=== PATIENT | male | born 1960 | race Caucasian/White ===

== ENCOUNTER 2018-06-23 18:03 | Inpatient (IN) | payer OTHER ==
[2018-06-23 19:46] VITALS: BMI 24.2
--- NOTE | 2018-06-23 23:34 | HP ---
"CIWA Score Nausea/Vomitin-Mild Nausea/No Vomiting Muscle Tremors: 4-Moderate,w/Arms Extend Anxiety: 1-Mildly Anxious Agitation: 4-Moderately Restless Paroxysmal Sweats: 3 (Increased facial moisture w/o beads) Orientation: 1-Uncertain about Date Tacttile Disturbances: 0-None Auditory Disturbances: 0-None Visual Disturbances: 0-None Headache: 4-Moderately Severe CIWA-Ar Total Score: 18 - Admission Criteria OASAS Guidelines: Admission for Medically Managed Detox: Requires at least one of the followin. CIWA greater than 12 2. Seizures within the past 24 hours 3. Delirium tremens within the past 24 hours 4. Hallucinations within the past 24 hours 5. Acute intervention needed for co occurring medical disorder 6. Acute intervention needed for co occurring psychiatric disorder 7. Severe withdrawal that cannot be handled at a lower level of care (continued vomiting, continued diarrhea, abnormal vital signs) requiring intravenous medication and/or fluids 8. Patient presents the following: CIWA greater than 12 Admission Criteria Met: Admission criteria met Admission ROS [facility] Chief Complaint: Having alcohol withdrawal. Allergies/Adverse Reactions: Allergies Allergy/AdvReac Type Severity Reaction Status Date / Time peach Allergy Severe Hives Verified 06/23/18 21:09 No Known Drug Allergies Allergy Verified 06/23/18 21:09 NKA Allergy Uncoded 06/23/18 21:09 History of Present Illness: I'm here to detox from alcohol. Marijuana use since age 16. Nicotine use since age 20. Declines nicotine patch and gum. Alcohol use since age 20. Cocaine use since age 31. Heroin use since age 21. Currently on [facility] -OTP ([phone]) Current Methadone dose is 80 mg. States last medicated this am. Denies seizures, blackouts, overdoses. Hx: DM but states stopped meds on own. Will do BGM x 2 days and provider will evaluate on-going necessity. Hx: asthma - denies recent exacerbation. Hx: Chronic LBP. Hx: Depression, insomnia, and anxiety. Denies thoughts of harming self or others. Search Terms: Laquitajuvencio Aguilerava, 1960 Search Date: 06/23/2018 11:31:04 PM The Drug Utilization Report below displays all of the controlled substance prescriptions, if any, that your patient has filled in the last twelve months. The information displayed on this report is compiled from pharmacy submissions to the Department, and accurately reflects the information as submitted by the pharmacies. This report was requested by: Marizol Vinson | Reference #: [id number] Exam Limitations: No Limitations - Ebola screening Have you traveled outside of the country in the last 21 days: No Have you had contact with anyone from an Ebola affected area: No Have you been sick,other than usual withdrawal symptoms: No Do you have a fever: No - Review of Systems Constitutional: Chills, Diaphoresis, Changes in sleep (Difficulty staying asleep - takes seroquel) EENT: reports: Blurred Vision, Dental Problems (Missing teeth. Chews and swallows ok) Respiratory: reports: No Symptoms reported Cardiac: reports: No Symptoms Reported GI: reports: Nausea, Vomiting : reports: Urgency (W/o burning or blood. Encourage f/u w/ upon discharge) Musculoskeletal: reports: Back Pain (Chronic LBP achy and sharp. Pain is a '5' at this time. Worse when gets OOB and lifiting heavy objects.) Integumentary: reports: No Symptoms Reported Neuro: reports: Headache (Severe r/t withdrawal), Tremors Endocrine: reports: Increased Thirst, Increased Urine Hematology: reports: No Symptoms Reported Psychiatric: reports: Judgement Intact, Orientated x3, Agitated, Anxious, Depressed (Denies thoughts of harming self or others) Patient History - Patient Medical History Hx Anemia: No Hx Asthma: No Hx Chronic Obstructive Pulmonary Disease (COPD): No Hx Cancer: No Hx Cardiac Disorders: No Hx Congestive Heart Failure: No Hx Hypertension: No Hx Hypercholesterolemia: No HX Cerebrovascular Accident: No Hx Seizures: No Hx Diabetes: Yes (ON METFORMIN BID BUT HAS NOT TAKEN IN 4 MONTHS) Hx Gastrointestinal Disorders: No Hx Genitourinary Disorders: Yes (GONORRHEA TX IN THE PAST) Hx Sexually Transmitted Disorders: Yes Hx Renal Disease (ESRD): No Hx Thyroid Disease: No Hx Human Immunodeficiency Virus (HIV): No (NEGATIVE HX) Hx Hepatitis C: No Hx Depression: Yes (ON MEDS) Hx Suicide Attempt: Yes (HANG SELF ON MONTH AGO. DENIES CURRENT IDEATION) Hx Schizophrenia: Yes - Patient Surgical History Past Surgical History: Yes Hx Neurologic Surgery: No Hx Cataract Extraction: No Hx Cardiac Surgery: No Hx Lung Surgery: No Hx Breast Surgery: No Hx Breast Biopsy: No Hx Abdominal Surgery: No Hx Appendectomy: No Hx Cholecystectomy: No Hx Genitourinary Surgery: No Hx Section: No Hx Orthopedic Surgery: No Other Surgical History: MOUTH SX DUE TO JAW FX 1996 Anesthesia Reaction: No - PPD History Previous Implant?: Yes Documented Results: Negative w/proof Implanted On Prior [facility] Admission?: Yes Date: 07/26/14 PPD to be Administered?: Yes - Smoking Cessation Smoking history: Current every day smoker Have you smoked in the past 12 months: Yes Aproximately how many cigarettes per day: 3 Hx Chewing Tobacco Use: No Initiated information on smoking cessation: Yes 'Breaking Loose' booklet given: 06/23/18 - Substance & Tx. History Hx Substance Use: Yes Substance Use Type: Alcohol, Cocaine, Heroin Hx Substance Use Treatment: Yes (detox, on MMTP) - Substances Abused Alcohol Route: Oral Frequency: Daily Amount used: LIQUOR- 1 PINT, BEER- 2 (40oz) Age of first use: 20 Date of Last Use: 06/23/18 Cocaine Route: Inhalation Frequency: Daily Amount used: $20 Age of first use: 31 Date of Last Use: 06/22/18 Marijuana/Hashish Route: Smoking Frequency: Daily Amount used: 1 joint Age of first use: 16 Date of Last Use: 06/22/18 Admission Physical Exam S - Vital Signs Vital Signs: Vital Signs - 24 hr 06/23/18 19:42 Temperature 97.8 F Pulse Rate 72 Respiratory 18 Rate Blood Pressure 108/60 - Physical General Appearance: Yes: Nourished, Appropriately Dressed, Mild Distress, Tremorous, Irritable, Sweating, Anxious HEENTM: Yes: EOMI, Hearing grossly Normal, Normal Voice, GLEN, Pharynx Normal, Nasal Congestion Respiratory: Yes: Lungs Clear, Normal Breath Sounds, No Respiratory Distress Neck: Yes: No masses,lesions,Nodules, Supple Breast: Yes: Breast Exam Deferred Cardiology: Yes: Regular Rhythm, Regular Rate, S1, S2 Abdominal: Yes: Flat, Soft, Increased Bowel Sounds Back: Yes: Within Normal Limits Musculoskeletal: Yes: full range of Motion, Gait Steady Extremities: Yes: Normal Capillary Refill, Normal Inspection, Normal Range of Motion, Tremors (of hands when arms elevated) Neurological: Yes: lay up operator II-XII NML intact, Fully Oriented, Alert, Motor Strength 5/5, Normal Mood/Affect Integumentary: Yes: Normal Color, Dry, Warm, Track [place] (Old track [place] on arms) - Diagnostic (1) Alcohol dependence with uncomplicated withdrawal Current Visit: Yes Status: Acute (2) Nicotine dependence, uncomplicated Current Visit: Yes Status: Chronic Qualifiers: Nicotine product type: cigarettes Qualified Code(s): F17.210 - Nicotine dependence, cigarettes, uncomplicated (3) Hx of diabetes mellitus Current Visit: Yes Status: Chronic (4) Cocaine dependence, uncomplicated Current Visit: Yes Status: Chronic (5) Cannabis abuse, uncomplicated Current Visit: Yes Status: Chronic (6) Asthma Current Visit: No Status: Chronic Qualifiers: Asthma severity: unspecified severity Asthma persistence: unspecified Asthma complication type: unspecified Qualified Code(s): J45.909 - Unspecified asthma, uncomplicated Comment: Denies recent exacerbation. (7) Low back ache Current Visit: Yes Status: Chronic Qualifiers: Chronicity: chronic Back pain laterality: midline Sciatica presence: without sciatica Qualified Code(s): M54.5 - Low back pain; G89.29 - Other chronic pain Comment: FROM Spine Cleared for Admission [facility] - Detox or Rehab [facility] Level of Care: Medically Managed Detox Regimen/Protocol: Librium [facility] Breath Alcohol Content Breath Alcohol Content: 0.060 Urine Drug Screen - Results Drug Screen Negative: No Urine Drug Screen Results: THC-Marijuana, ROSAURA-Cocaine, OPI-Opiates, MTD- Methadone"
[2018-06-23] MEDS ORDERED: ALBUTEROL SO4 8 GM HFA INHALER IH PRN (23:58)
[2018-06-24] MEDS ORDERED: MAGNESIUM CITRATE 300 ML BOTTLE PO PRN (00:20)
[2018-06-24] MEDS ORDERED: chlordiazePOXIDE HCL 25 MG CAPSULE PO PRN (00:20)
[2018-06-24] MEDS ORDERED: LOPERAMIDE HCL 2 MG CAPSULE PO PRN (00:20)
[2018-06-24] MEDS ORDERED: MAG HYDROX/AL HYDROX/SIMETH 30 ML UNIT-DOSE CUP PO PRN (00:20)
[2018-06-24] MEDS ORDERED: MENTHOL/PHENOL 1 EACH UD MM PRN (00:20)
[2018-06-24] MEDS ORDERED: IBUPROFEN 400 MG TABLET (FP) PO PRN (00:20)
[2018-06-24] MEDS ORDERED: chlordiazePOXIDE HCL 25 MG CAPSULE PO ONE (00:20)
[2018-06-24] MEDS ORDERED: MAGNESIUM HYDROX 2400MG/30ML ORAL SUSPENSION 30 ML CUP PO PRN (00:20)
[2018-06-24] MEDS: chlordiazePOXIDE HCL 25 MG CAPSULE PO SCH ×4 (06:21→22:14)
[2018-06-24] MEDS ORDERED: METHADONE HCL 40 MG DISPERSABLE TABLET PO ONE (10:00)
--- NOTE | 2018-06-24 10:13 | PN ---
[facility] CIWA - CIWA Score Nausea/Vomitin-Mild Nausea/No Vomiting Muscle Tremors: 3 Anxiety: 3 Agitation: 2 Paroxysmal Sweats: 1-Minimal Palms Moist Orientation: 1-Uncertain about Date Tacttile Disturbances: 1-Very Mild Itch/Numbness Auditory Disturbances: 0-None Visual Disturbances: 0-None Headache: 2-Mild CIWA-Ar Total Score: 14 [facility] Progress Note (SOAP) Subjective: received methadone 80mg today tremor sweat restlessness gi distress Objective: 06/24/18 10:13 Vital Signs Temperature 98.5 F 06/24/18 09:10 Pulse Rate 61 06/24/18 09:10 Respiratory Rate 18 06/24/18 09:10 Blood Pressure 89/59 L 06/24/18 09:10 O2 Sat by Pulse Oximetry (%) lab pending
[2018-06-24 10:18] LABS: HEMATOCRIT 43.7 % (35.4-49); HEMOGLOBIN 14.3 GM/dL (11.7-16.9); MCH 30.5 pg (25.7-33.7); MCHC 32.7 g/dl (32.0-35.9); MEAN CELL VOLUME 93.3 fl (80-96); PLATELET COUNT 164 K/MM3 (134-434); RBC 4.69 M/mm3 (4.00-5.60); RDW 14.2 % (11.9-15.9); WHITE BLOOD COUNT 4.4 K/mm3 (4.0-10.0)
[2018-06-24] MEDS: PRENATAL VITAMINS W/ FOLIC ACID TABLET (FP) PO SCH (10:20)
[2018-06-24 10:30] LABS: ALBUMIN 3.7 g/dl (3.4-5.0); ALK PHOS 107 U/L (45-117); ANION GAP 6 MMOL/L (8-16); BILIRUBIN,TOTAL 0.7 mg/dL (0.2-1); BLOOD UREA NITROGEN 14 mg/dL (7-18); CALCIUM 8.6 mg/dL (8.5-10.1); CHLORIDE 99 mmol/L (98-107); CO2 30 mmol/L (21-32); CREATININE 1.1 mg/dL (0.55-1.3); GLUCOSE,RANDOM 114 mg/dL (74-106); POTASSIUM 3.9 mmol/L (3.5-5.1); SGOT/AST 33 U/L (15-37); SGPT/ALT 28 U/L (13-61); SODIUM 135 mmol/L (136-145); TOT PROT 7.9 g/dl (6.4-8.2)
--- NOTE | 2018-06-24 11:43 | CONSULT ---
[facility] Psychiatric Consult - Data Date of interview: 06/24/17 Admission source: [facility] Identifying data: Patient is a 57 year old , father of one, unemployed, domiciled, and supported by public assistance. This is one of multiple admissions for patient. Patient admitted to for alcohol, cocaine, marijuana, and opiate dependence. Substance Abuse History: Smoking Cessation. Smoking history: Current every day smoker. Have you smoked in the past 12 months: Yes. Aproximately how many cigarettes per day: 3. Hx Chewing Tobacco Use: No. Initiated information on smoking cessation: Yes. 'Breaking Loose' booklet given: 06/23/18. - Substance & Tx. History. Hx Substance Use: Yes. Substance Use Type: Alcohol, Cocaine, Heroin. Hx Substance Use Treatment: Yes (detox, on MMTP). - Substances Abused. Alcohol. Route: Oral. Frequency: Daily. Amount used: LIQUOR- 1 PINT, BEER- 2 (40oz). Age of first use: 20. Date of Last Use: 06/23/18. Cocaine. Route: Inhalation. Frequency: Daily. Amount used: $20. Age of first use: 31. Date of Last Use: 06/22/18. Marijuana/Hashish. Route: Smoking. Frequency: Daily. Amount used: 1 joint. Age of first use: 16. Date of Last Use: 06/22/18 Medical History: Diabetes, Gonorrhea tx in the past, Mouth sx due to jaw fx 1996 Psychiatric History: Patient denies h/o psychiatric hospitalization. States he receives outpatient psychatric care from a [facility] on [address] [place] [address]. Patient is unreliable. Current information contradicts previous psychiatric consultation in 2014 in which patient reported a history of three psychiatric hospitalizations in the state of [place] and a dignosis of schizoaffective. He currently reports taking seroquel 100mg HS + Seroquel 50mg daily. Patient denies h/o suicide attempt. Physical/Sexual Abuse/Trauma History: denies Mental Status Exam - Mental Status Exam Alert and Oriented to: Time, Place, Person Cognitive Function: Good Patient Appearance: Well Groomed Mood: Withdrawn, Irritable (Slightly irritable) Affect: Mood Congruent Patient Behavior: Guarded Speech Pattern: Appropriate Voice Loudness: Normal Thought Process: Goal Oriented Thought Disorder: Not Present Hallucinations: Denies Suicidal Ideation: Denies Homicidal Ideation: Denies Insight/Judgement: Poor Sleep: Poorly Appetite: Fair Muscle strength/Tone: Normal Gait/Station: Normal Psychiatric Findings - Problem List ([place] 1, 2,3) (1) Substance induced mood disorder Current Visit: Yes Status: Acute (2) Alcohol dependence with uncomplicated withdrawal Current Visit: Yes Status: Acute (3) Methadone maintenance therapy patient Current Visit: Yes Status: Chronic (4) Cannabis abuse, uncomplicated Current Visit: Yes Status: Chronic (5) Cocaine dependence, uncomplicated Current Visit: Yes Status: Chronic (6) Opioid dependence Current Visit: Yes Status: Chronic - Initial Treatment Plan Initial Treatment Plan: Psychoeducation provided. Detoxification in progress. Will order Seroquel 50mg HS. Seroquel to be increased tomorrow morning if current dose is tolerated. Benefits and side effects discussed. Verbal consent given.
[2018-06-24] MEDS: CEPHALEXIN MONOHYDRATE 500 MG CAPSULE (UD) PO SCH ×2 (13:06→22:14)
[2018-06-24] MEDS: ACETAMINOPHEN 325 MG TABLET (FP) PO PRN ×2 (14:23→19:07)
--- NOTE | 2018-06-24 16:24 | EKG ---
Test Reason : Blood Pressure : / mmHG Vent. Rate : 052 BPM Atrial Rate : 052 BPM P-R Int : 206 ms QRS Dur : 100 ms QT Int : 478 ms P-R-T Axes : 048 -28 029 degrees QTc Int : 444 ms SINUS BRADYCARDIA INCOMPLETE RIGHT BUNDLE BRANCH BLOCK BORDERLINE ECG NO PREVIOUS ECGS AVAILABLE Confirmed by YANN BARRIENTOS, KEITH ([id number]) on 06/24/2018 4:23:57 PM Referred By: Confirmed By:KEITH LERNER MD
[2018-06-24] MEDS: VITAMINS A AND D TOPICAL OINTMENT 60 GM TUBE TP SCH ×2 (17:27→23:07)
[2018-06-24] MEDS ORDERED: THIAMINE HCL 100 MG TABLET (FP) PO SCH (22:00)
[2018-06-24] MEDS ORDERED: MELATONIN 5 MG TABLETS PO PRN (22:00)
[2018-06-24] MEDS ORDERED: QUEtiapine FUMARATE 50 MG TABLET PO SCH (22:00)
[2018-06-25] MEDS ORDERED: METHADONE HCL 40 MG DISPERSABLE TABLET PO SCH ×2 (06:00→10:00)
[2018-06-25] MEDS: VITAMINS A AND D TOPICAL OINTMENT 60 GM TUBE TP SCH ×2 (06:07→12:03)
[2018-06-25] MEDS: chlordiazePOXIDE HCL 25 MG CAPSULE PO SCH ×2 (06:07→10:50)
[2018-06-25 09:54] VITALS: BP 103/69; PULSE 54; TEMP 98.1
[2018-06-25] MEDS: CEPHALEXIN MONOHYDRATE 500 MG CAPSULE (UD) PO SCH (10:47)
[2018-06-25] MEDS: PRENATAL VITAMINS W/ FOLIC ACID TABLET (FP) PO SCH (10:47)
[2018-06-25 11:01] LABS: URINE APPEARANCE CLEAR; URINE BILIRUBIN NEGATIVE (<2.0 mg/dL); URINE COLOR LTYELLOW; URINE GLUCOSE (UA) NEGATIVE (NEGATIVE); URINE KETONE NEGATIVE (NEGATIVE); URINE LEUK ESTERASE NEGATIVE (NEGATIVE); URINE NITRITE NEGATIVE (NEGATIVE); URINE PROTEIN NEGATIVE (NEGATIVE); URINE UROBILINOGEN NEGATIVE mg/dL (0.2-1.0)
--- NOTE | 2018-06-25 11:01 | PN ---
S CIWA - CIWA Score Nausea/Vomitin Muscle Tremors: 2 Anxiety: 2 Agitation: 2 Paroxysmal Sweats: 1-Minimal Palms Moist Orientation: 0-Oriented Tacttile Disturbances: 1-Very Mild Itch/Numbness Auditory Disturbances: 1-Very Mild Visual Disturbances: 0-None Headache: 2-Mild CIWA-Ar Total Score: 13 [facility] Progress Note (SOAP) Subjective: alert,irritable,anxious,interrupted sleep Objective: 06/25/18 11:00 Vital Signs Temperature 98.1 F 06/25/18 09:53 Pulse Rate 54 L 06/25/18 09:53 Respiratory Rate 18 06/25/18 09:53 Blood Pressure 103/69 06/25/18 09:53 O2 Sat by Pulse Oximetry (%) 06/25/18 11:00 Laboratory Last Values WBC 4.4 K/mm3 (4.0-10.0) 06/24/18 07:00 RBC 4.69 M/mm3 (4.00-5.60) 06/24/18 07:00 Hgb 14.3 GM/dL (11.7-16.9) 06/24/18 07:00 Hct 43.7 % (35.4-49) 06/24/18 07:00 MCV 93.3 fl (80-96) 06/24/18 07:00 MCH 30.5 pg (25.7-33.7) 06/24/18 07:00 MCHC 32.7 g/dl (32.0-35.9) 06/24/18 07:00 RDW 14.2 % (11.9-15.9) 06/24/18 07:00 Plt Count 164 K/MM3 (134-434) 06/24/18 07:00 MPV 10.0 fl (7.5-11.1) D 06/24/18 07:00 Sodium 135 mmol/L (136-145) L 06/24/18 07:00 Potassium 3.9 mmol/L (3.5-5.1) 06/24/18 07:00 Chloride 99 mmol/L (98-107) 06/24/18 07:00 Carbon Dioxide 30 mmol/L (21-32) 06/24/18 07:00 Anion Gap 6 MMOL/L (8-16) L 06/24/18 07:00 BUN 14 mg/dL (7-18) 06/24/18 07:00 Creatinine 1.1 mg/dL (0.55-1.3) 06/24/18 07:00 Creat Clearance w eGFR > 60 (>60) 06/24/18 07:00 POC Glucometer 100 UNITS (80-120) 06/25/18 06:06 Random Glucose 114 mg/dL (74-106) H 06/24/18 07:00 Calcium 8.6 mg/dL (8.5-10.1) 06/24/18 07:00 Total Bilirubin 0.7 mg/dL (0.2-1) 06/24/18 07:00 AST 33 U/L (15-37) 06/24/18 07:00 ALT 28 U/L (13-61) 06/24/18 07:00 Alkaline Phosphatase 107 U/L (45-117) 06/24/18 07:00 Total Protein 7.9 g/dl (6.4-8.2) 06/24/18 07:00 Albumin 3.7 g/dl (3.4-5.0) 06/24/18 07:00 RPR Titer Nonreactive (NONREACTIVE) 06/24/18 07:00 HIV 1&2 Antibody Screen Negative 06/24/18 07:00 HIV P24 Antigen Negative 06/24/18 07:00 [id number] Assessment: 06/25/18 11:00 withdrawal symptom Plan: continue detox
[2018-06-25] MEDS: ACETAMINOPHEN 325 MG TABLET (FP) PO PRN (13:03)
--- NOTE | 2018-06-25 14:53 | DS ---
[facility] Detox Discharge Summary Admission Date: 06/23/18 Discharge Date: 06/25/18 - History Present History: Alcohol Dependence, Cannabis Dependence, Cocaine Dependence, MMTP Additional Comments: patient did not want to complete treatment,seen by counselor,all attempts to convince patient to stay with no avail, did not want to wait,signed release ama,to go to er if any emergency medical problem Pertinent Past History: asthma cellulitis left - Physical Exam Results Vital Signs: Vital Signs Temperature 98.1 F 06/25/18 09:53 Pulse Rate 54 L 06/25/18 09:53 Respiratory Rate 18 06/25/18 09:53 Blood Pressure 103/69 06/25/18 09:53 O2 Sat by Pulse Oximetry (%) Pertinent Admission Physical Exam Findings: withdrawal symptom Vital Signs Temperature 98.1 F 06/25/18 09:53 Pulse Rate 54 L 06/25/18 09:53 Respiratory Rate 18 06/25/18 09:53 Blood Pressure 103/69 06/25/18 09:53 O2 Sat by Pulse Oximetry (%) Laboratory Last Values WBC 4.4 K/mm3 (4.0-10.0) 06/24/18 07:00 RBC 4.69 M/mm3 (4.00-5.60) 06/24/18 07:00 Hgb 14.3 GM/dL (11.7-16.9) 06/24/18 07:00 Hct 43.7 % (35.4-49) 06/24/18 07:00 MCV 93.3 fl (80-96) 06/24/18 07:00 MCH 30.5 pg (25.7-33.7) 06/24/18 07:00 MCHC 32.7 g/dl (32.0-35.9) 06/24/18 07:00 RDW 14.2 % (11.9-15.9) 06/24/18 07:00 Plt Count 164 K/MM3 (134-434) 06/24/18 07:00 MPV 10.0 fl (7.5-11.1) D 06/24/18 07:00 Sodium 135 mmol/L (136-145) L 06/24/18 07:00 Potassium 3.9 mmol/L (3.5-5.1) 06/24/18 07:00 Chloride 99 mmol/L (98-107) 06/24/18 07:00 Carbon Dioxide 30 mmol/L (21-32) 06/24/18 07:00 Anion Gap 6 MMOL/L (8-16) L 06/24/18 07:00 BUN 14 mg/dL (7-18) 06/24/18 07:00 Creatinine 1.1 mg/dL (0.55-1.3) 06/24/18 07:00 Creat Clearance w eGFR > 60 (>60) 06/24/18 07:00 POC Glucometer 100 UNITS (80-120) 06/25/18 06:06 Random Glucose 114 mg/dL (74-106) H 06/24/18 07:00 Calcium 8.6 mg/dL (8.5-10.1) 06/24/18 07:00 Total Bilirubin 0.7 mg/dL (0.2-1) 06/24/18 07:00 AST 33 U/L (15-37) 06/24/18 07:00 ALT 28 U/L (13-61) 06/24/18 07:00 Alkaline Phosphatase 107 U/L (45-117) 06/24/18 07:00 Total Protein 7.9 g/dl (6.4-8.2) 06/24/18 07:00 Albumin 3.7 g/dl (3.4-5.0) 06/24/18 07:00 Urine Color Ltyellow 06/24/18 08:00 Urine Appearance Clear 06/24/18 08:00 Urine pH 7.0 (5.0-8.0) 06/24/18 08:00 Ur Specific [place] 1.013 (1.010-1.035) 06/24/18 08:00 Urine Protein Negative (NEGATIVE) 06/24/18 08:00 Urine Glucose (UA) Negative (NEGATIVE) 06/24/18 08:00 Urine Ketones Negative (NEGATIVE) 06/24/18 08:00 Urine Blood Negative (NEGATIVE) 06/24/18 08:00 Urine Nitrite Negative (NEGATIVE) 06/24/18 08:00 Urine Bilirubin Negative (<2.0 mg/dL) 06/24/18 08:00 Urine Urobilinogen Negative mg/dL (0.2-1.0) 06/24/18 08:00 Ur Leukocyte Esterase Negative (NEGATIVE) 06/24/18 08:00 RPR Titer Nonreactive (NONREACTIVE) 06/24/18 07:00 HIV 1&2 Antibody Screen Negative 06/24/18 07:00 HIV P24 Antigen Negative 06/24/18 07:00 - Medication Discharge Medications: Ambulatory Orders Albuterol Sulfate Inhaler - [Ventolin HFA Inhaler -] 2 inh PO Q4H PRN 07/24/14 Salmeterol/Fluticasone [Advair 100Mcg/50Mcg -] 1 inh PO BID 07/24/14 Quetiapine Fumarate [Seroquel -] 50 mg PO HS #30 tablet 07/25/14 Quetiapine Fumarate [Seroquel -] 100 mg PO AM #30 tablet 07/25/14 - Diagnosis (1) Alcohol dependence with uncomplicated withdrawal Current Visit: Yes Status: Acute (2) DM2 (diabetes mellitus, type 2) Current Visit: Yes Status: Acute (3) Cannabis abuse, uncomplicated Current Visit: Yes Status: Chronic (4) Cocaine dependence, uncomplicated Current Visit: Yes Status: Chronic (5) Low back ache Current Visit: Yes Status: Chronic Qualifiers: Chronicity: chronic Back pain laterality: midline Sciatica presence: without sciatica Qualified Code(s): M54.5 - Low back pain; G89.29 - Other chronic pain (6) Asthma Current Visit: No Status: Chronic Qualifiers: Asthma severity: unspecified severity Asthma persistence: unspecified Asthma complication type: unspecified Qualified Code(s): J45.909 - Unspecified asthma, uncomplicated (7) Cellulitis Current Visit: Yes Status: Acute - AMA Did Patient Leave Against Medical Advice: Yes
--- NOTE | 2018-06-25 14:53 | PN ---
[facility] Progress Note Note: patient did not want to complete treatment,seen by counselor,all attempts for convince patient to stay with no avail,did not want to wait, signed release ama,advise to go to er if any problem
[2018-06-26] MEDS ORDERED: chlordiazePOXIDE 5 MG CAPSULE PO SCH (05:00)
[2018-06-27] MEDS ORDERED: chlordiazePOXIDE HCL 10 MG CAPSULE PO SCH (05:00)
== END 2018-06-25 14:27 | disposition left against medical advice (07) | DRG 770 ==
LOC: YASAS 18:03 → Y3N 22:23
PROC: HZ2ZZZZ Detoxification Services for Substance Abuse Treatment (ICD-10-PCS; principal; 2018-06-23)
DX: F10.230 Alcohol dependence with withdrawal, uncomplicated (principal); F14.20 Cocaine dependence, uncomplicated; F12.10 Cannabis abuse, uncomplicated; F11.20 Opioid dependence, uncomplicated; F17.210 Nicotine dependence, cigarettes, uncomplicated; F19.24 Other psychoactive substance dependence with psychoactive substance-induced mood disorder; E11.9 Type 2 diabetes mellitus without complications; J45.909 Unspecified asthma, uncomplicated; M54.5 Low back pain; G89.29 Other chronic pain; L03.90 Cellulitis, unspecified; Z79.84 Long term (current) use of oral hypoglycemic drugs; Z87.438 Personal history of other diseases of male genital organs; Z91.5 Personal history of self-harm; Z59.0 Homelessness
CPT/HCPCS: 36415; 80053; 81003; 82962; 85027; 86593; 87389; 93005; 93010